=== PATIENT | female | born 1955 | race American Indian/Alaskan Native ===

== ENCOUNTER 2017-09-03 12:35 | Outpatient (CLI) | payer MEDICARE ==
--- NOTE | 2017-09-03 16:01 | Ultrasound Report ---
ULTRASOUND RIGHT ARM: 09/03/17 CLINICAL: History of right breast cancer and abnormal uptake in the right arm on PET. FINDINGS: Ultrasound of the upper right arm was performed in the area of darkened skin and demonstrated normal structures with no mass, cyst or fluid collection. IMPRESSION: Negative study. Consider MRI.
== END 2017-09-03 12:36 | disposition home or self-care (01) ==
LOC: SPVWC 12:35
PROVIDERS: ATTEND Internal Medicine Hematology & Oncology
DX: R93.7 Abnormal findings on diagnostic imaging of other parts of musculoskeletal system (principal); Z85.3 Personal history of malignant neoplasm of breast